=== PATIENT | male | born 1965 | race Caucasian/White ===

== ENCOUNTER 2018-07-18 12:17 | Inpatient (IN) | payer OTHER ==
[~2018-07-18] VITALS: Ht 190.5 cm; Wt 117.5 kg
[~2018-07-18 12:17] MED LIST: ACET-1600 PO; AMLO-150 PO; CEPH-376 PO
--- NOTE | 2018-07-18 12:56 | NUR ---
PT. IS A & O X 4 WITH C/O BLOODY STOOL IN HIS COLOSTOMY WELL BLOODY EMESIS YESTERDAY. PT. IS PINK, WARM AND DRY. LUNGS ARE CTA. PT. HAS A HERNIA PRESENT AT HIS LLQ. PT.'S BS ARE HYPOACTIVE. PT.'S PULSES ARE +2 THROUGHOUT. PT. IS RESTING WITH THE HOB ELEVATED GREATER THAN 30 DEGREES. PT. HAS THE CALL LIGHT IN PLACE AND THE SIDERAILS ARE UP X 2.
[2018-07-18 13:10] LABS: ALANINE AMINOTRANSFERASE 42 U/L (12-78); ALBUMIN 3.7 g/dL (3.4-5.0); ANION GAP 7 mmol/L (5-15); CALCIUM 8.4 mg/dL (8.5-10.1); CHLORIDE 110 mmol/L (98-107); CREATININE 0.79 mg/dL (0.7-1.3); INTERNATIONAL NORMALIZED RATIO 1.04 (0.93-1.1); PROTHROMBIN TIME 10.9 Seconds (9.6-11.5)
[2018-07-18 13:13] LABS: ALKALINE PHOSPHATASE 73 U/L (45-117); TOTAL PROTEIN 7.3 g/dL (6.4-8.2)
[2018-07-18] MEDS ORDERED: ONDANSETRON 2MG/ML, 2ML IVPush ONE (13:30)
[2018-07-18] MEDS ORDERED: SODIUM CHLORIDE FLUSH 10ML SYR IVF ONE (13:30)
[2018-07-18] MEDS ORDERED: OCTREOTIDE 100MCG/ML, 1ML (0.1MG/ML) IV ONE (13:30)
--- NOTE | 2018-07-18 13:42 | NUR ---
IV ACCESS ESTABLISHED PT. WAS PLACED ON THE CP MONITOR. PT. IS RESTING AT THIS TIME. NO CONCERNS.
[2018-07-18 14:06] LABS: MEAN CORPUSCULAR HEMOGLOBIN 33.4 pg (27.5-34.5); MEAN CORPUSCULAR HGB CONC 33.9 g/dL (33.2-36.2); MEAN CORPUSCULAR VOLUME 98.5 fL (81-97); RED BLOOD COUNT 4.43 x10^6/uL (4.38-5.82)
[2018-07-18 14:09] LABS: MEAN PLATELET VOLUME 10.3 fL (7.4-10.4); PLATELET COUNT 65 x10^3/uL (130-400)
[2018-07-18 14:13] LABS: MD SCAN
[2018-07-18 14:14] LABS: BASOPHILS # (AUTO) 0.01 x10^3/uL (0-0.1); BASOPHILS % (AUTO) 1 % (0-1); EOSINOPHILS # (AUTO) 0.07 x10^3/uL (0-0.4); EOSINOPHILS % (AUTO) 3 % (1-7); LYMPHOCYTES # (AUTO) 0.37 x10^3/uL (1-3.4); LYMPHOCYTES % (AUTO) 18 % (22-44); MONOCYTES # (AUTO) 0.25 x10^3/uL (0.2-0.8); MONOCYTES % (AUTO) 12 % (2-9); NEUTROPHILS % (AUTO) 67 % (42-75)
[2018-07-18] MEDS ORDERED: OCTREOTIDE 500 MCG in SODIUM CHLORIDE 0.9% 249 ML IV PRN (14:42)
[2018-07-18] MEDS ORDERED: ONDANSETRON 2MG/ML, 2ML ONE (14:44)
[2018-07-18] MEDS ORDERED: OCTREOTIDE 100MCG/ML, 1ML (0.1MG/ML) ONE (14:44)
[2018-07-18] MEDS ORDERED: SODIUM CHLORIDE 0.9% 1,000 ML IV ONE (14:49)
--- NOTE | 2018-07-18 14:55 | NUR ---
PT LYING SUPINE ON GURNEY WITH SIDERAILS UP X 2. PT MEDICATED WITH OCTREOTIDE AND ZOFRAN, DOCUMENTED IN EMR. PT HAS NO COMPLAINTS AT THIS TIME.
[2018-07-18] MEDS ORDERED: SODIUM CHLORIDE FLUSH 10ML SYR IVF PRN (15:00)
--- NOTE | 2018-07-18 15:13 | NUR ---
PT. REPORT WAS GIVEN TO FERNANDA HILL. PT. IS RESTING WITHOUT CONCERNS.
[2018-07-18] MEDS ORDERED: DOCUSATE 100 MG CAPSULE PO PRN (15:30)
[2018-07-18] MEDS ORDERED: POLYETHYLENE GLYCOL 17 GM PACKET PO PRN (15:30)
[2018-07-18 15:41] VITALS: BP 163/80
[2018-07-18] MEDS: LACTATED RINGERS 1,000 ML IV SCH (17:28)
[2018-07-18 17:41] VITALS: BP 160/98
[2018-07-18 18:55] VITALS: BP 144/86
[2018-07-18] MEDS ORDERED: ONDANSETRON 2MG/ML, 2ML IVPush PRN (19:00)
[2018-07-18] MEDS: OCTREOTIDE 500 MCG in SODIUM CHLORIDE 0.9% 249 ML IV SCH (20:45)
[2018-07-18] MEDS: PANTOPRAZOLE 40 MG IV IVPush SCH (20:45)
[2018-07-19 01:46] VITALS: BP 138/81
[2018-07-19 05:14] LABS: INTERNATIONAL NORMALIZED RATIO 1.12 (0.93-1.1); PROTHROMBIN TIME 11.7 Seconds (9.6-11.5)
[2018-07-19 05:19] LABS: MEAN CORPUSCULAR HEMOGLOBIN 33.2 pg (27.5-34.5); MEAN CORPUSCULAR HGB CONC 33.4 g/dL (33.2-36.2); MEAN CORPUSCULAR VOLUME 99.5 fL (81-97); MEAN PLATELET VOLUME 9.9 fL (7.4-10.4); RED BLOOD COUNT 4.09 x10^6/uL (4.38-5.82); RED CELL DISTRIBUTION WIDTH 12.4 % (9.4-14.8)
[2018-07-19 05:24] LABS: PLATELET COUNT 41 x10^3/uL (130-400)
[2018-07-19 05:27] LABS: CALCIUM 7.7 mg/dL (8.5-10.1); CHLORIDE 107 mmol/L (98-107)
[2018-07-19 05:32] LABS: ALANINE AMINOTRANSFERASE 41 U/L (12-78); ALBUMIN 3.2 g/dL (3.4-5.0); ALKALINE PHOSPHATASE 61 U/L (45-117); ANION GAP 9 mmol/L (5-15); BILIRUBIN,TOTAL 1.5 mg/dL (0.2-1.0); CREATININE 0.77 mg/dL (0.7-1.3); TOTAL PROTEIN 6.5 g/dL (6.4-8.2)
[2018-07-19 05:51] LABS: BASOPHILS # (AUTO) 0.01 x10^3/uL (0-0.1); BASOPHILS % (AUTO) 1 % (0-1); EOSINOPHILS # (AUTO) 0.06 x10^3/uL (0-0.4); EOSINOPHILS % (AUTO) 4 % (1-7); LYMPHOCYTES # (AUTO) 0.37 x10^3/uL (1-3.4); LYMPHOCYTES % (AUTO) 23 % (22-44); MD SCAN; MONOCYTES # (AUTO) 0.23 x10^3/uL (0.2-0.8); MONOCYTES % (AUTO) 14 % (2-9); NEUTROPHILS # (AUTO) 0.95 x10^3/uL (1.8-6.8); NEUTROPHILS % (AUTO) 59 % (42-75)
[2018-07-19] MEDS: OCTREOTIDE 500 MCG in SODIUM CHLORIDE 0.9% 249 ML IV SCH ×3 (06:23→21:28)
[2018-07-19] MEDS: LACTATED RINGERS 1,000 ML IV SCH ×2 (06:25→15:57)
[2018-07-19 08:00] VITALS: BP 140/89
[2018-07-19] MEDS: PANTOPRAZOLE 40 MG IV IVPush SCH ×2 (09:09→21:27)
[2018-07-19] MEDS ORDERED: PROPOFOL 10 MG/ML, 50ML ONE (10:05)
[2018-07-19] MEDS ORDERED: PROPOFOL 10 MG/ML, 20ML ONE (10:05)
[2018-07-19] MEDS ORDERED: ONDANSETRON 2MG/ML, 2ML ONE ×2 (10:05→10:57)
[2018-07-19] MEDS ORDERED: FENTANYL PF 100 MCG/2ML ONE (10:43)
[2018-07-19] MEDS: FENTANYL PF 100 MCG/2ML IV PRN ×3 (10:46→11:11)
[2018-07-19] MEDS ORDERED: hydrALAzine 20 MG/ML, 1ML ONE (10:57)
[2018-07-19] MEDS ORDERED: PROMETHAZINE 25 MG/ML, 1ML IV PRN (11:00)
[2018-07-19] MEDS ORDERED: ONDANSETRON 2MG/ML, 2ML IV PRN (11:00)
[2018-07-19] MEDS ORDERED: OCTREOTIDE 500 MCG in SODIUM CHLORIDE 0.9% 249 ML IV SCH (11:00)
[2018-07-19] MEDS ORDERED: OXYcodone 5 MG/5 ML ORAL.SOL UDC PO PRN (11:00)
[2018-07-19] MEDS ORDERED: hydrALAzine 20 MG/ML, 1ML IV PRN (11:00)
[2018-07-19] MEDS ORDERED: MORPHINE SULFATE 4 MG/ML, 1ML IVPush ONE (12:30)
[2018-07-19 12:39] LABS: MEAN CORPUSCULAR HEMOGLOBIN 33.4 pg (27.5-34.5); MEAN CORPUSCULAR HGB CONC 33.9 g/dL (33.2-36.2); MEAN CORPUSCULAR VOLUME 98.6 fL (81-97); RED BLOOD COUNT 4.33 x10^6/uL (4.38-5.82); RED CELL DISTRIBUTION WIDTH 12.5 % (9.4-14.8)
[2018-07-19 13:14] LABS: BASOPHILS # (AUTO) 0.01 x10^3/uL (0-0.1); BASOPHILS % (AUTO) 1 % (0-1); EOSINOPHILS # (AUTO) 0.05 x10^3/uL (0-0.4); EOSINOPHILS % (AUTO) 3 % (1-7); LYMPHOCYTES # (AUTO) 0.29 x10^3/uL (1-3.4); LYMPHOCYTES % (AUTO) 20 % (22-44); MD SCAN; MEAN PLATELET VOLUME 9.3 fL (7.4-10.4); MONOCYTES # (AUTO) 0.19 x10^3/uL (0.2-0.8); MONOCYTES % (AUTO) 13 % (2-9); NEUTROPHILS # (AUTO) 0.94 x10^3/uL (1.8-6.8); NEUTROPHILS % (AUTO) 63 % (42-75); PLATELET COUNT 52 x10^3/uL (130-400)
[2018-07-19] MEDS: ACETAMINOPHEN 325 MG TABLET PO PRN ×2 (13:58→21:25)
[2018-07-19 14:45] VITALS: BP 163/97
[2018-07-19] MEDS: MORPHINE SULFATE 4 MG/ML, 1ML IVPush PRN (15:56)
[2018-07-19 17:04] LABS: MEAN CORPUSCULAR HEMOGLOBIN 33.6 pg (27.5-34.5); MEAN CORPUSCULAR HGB CONC 33.9 g/dL (33.2-36.2); MEAN CORPUSCULAR VOLUME 99.1 fL (81-97); MEAN PLATELET VOLUME 9.7 fL (7.4-10.4); PLATELET COUNT 50 x10^3/uL (130-400); RED BLOOD COUNT 4.09 x10^6/uL (4.38-5.82); RED CELL DISTRIBUTION WIDTH 12.5 % (9.4-14.8)
[2018-07-19 17:06] LABS: MD YES
[2018-07-19 18:29] LABS: BAND#(MANUAL) 0.04 x10^3/uL; BANDS%(MANUAL) 2 % (0-7); LYMPH#(MANUAL) 0.38 x10^3/uL (1-3.4); LYMPHS% (MANUAL) 21 % (22-44); MONOS#(MANUAL) 0.14 x10^3/uL (0.3-2.7); MONOS% (MANUAL) 8 % (2-9)
[2018-07-19 18:30] LABS: <PLATELET ESTIMATE> DECREASED; <PLT MORPHOLOGY> NORMAL PLT MORPH; <RBC MORPHOLOGY> NORMAL; BASOS#(MANUAL) 0.02 x10^3/uL (0-0.1); BASOS% (MANUAL) 1 % (0-1); EOS#(MANUAL) 0.09 x10^3/uL (0.0-0.4); EOS% (MANUAL) 5 % (1-7); SEG#(MANUAL) 1.13 x10^3/uL (1.8-6.8); SEGS% (MANUAL) 63 % (42-75)
[2018-07-19 18:38] VITALS: BP 172/92
[2018-07-19 23:41] LABS: MEAN CORPUSCULAR HEMOGLOBIN 32.9 pg (27.5-34.5); MEAN CORPUSCULAR HGB CONC 33.3 g/dL (33.2-36.2); MEAN PLATELET VOLUME 8.8 fL (7.4-10.4); PLATELET COUNT 56 x10^3/uL (130-400); RED BLOOD COUNT 4.09 x10^6/uL (4.38-5.82); RED CELL DISTRIBUTION WIDTH 12.6 % (9.4-14.8)
[2018-07-19 23:51] LABS: MD YES
[2018-07-19 23:57] LABS: <PLATELET ESTIMATE> DECREASED; <PLT MORPHOLOGY> NORMAL PLT MORPH; <RBC MORPHOLOGY> NORMAL; BASOS#(MANUAL) 0.02 x10^3/uL (0-0.1); BASOS% (MANUAL) 1 % (0-1); EOS#(MANUAL) 0.14 x10^3/uL (0.0-0.4); EOS% (MANUAL) 8 % (1-7); LYMPH#(MANUAL) 0.25 x10^3/uL (1-3.4); LYMPHS% (MANUAL) 14 % (22-44); MONOS#(MANUAL) 0.16 x10^3/uL (0.3-2.7); MONOS% (MANUAL) 9 % (2-9); SEG#(MANUAL) 1.22 x10^3/uL (1.8-6.8); SEGS% (MANUAL) 68 % (42-75)
[2018-07-20 00:24] VITALS: BP 134/81
[2018-07-20] MEDS: LACTATED RINGERS 1,000 ML IV SCH ×3 (01:23→16:41)
[2018-07-20] MEDS: ACETAMINOPHEN 325 MG TABLET PO PRN (05:53)
[2018-07-20 08:30] VITALS: BP 148/88
[2018-07-20] MEDS: PANTOPRAZOLE 40 MG IV IVPush SCH (08:59)
[2018-07-20] MEDS: OCTREOTIDE 500 MCG in SODIUM CHLORIDE 0.9% 249 ML IV SCH (08:59)
[2018-07-20 13:30] VITALS: BP 158/91
[2018-07-20] MEDS: MORPHINE SULFATE 4 MG/ML, 1ML IVPush PRN (13:47)
[2018-07-20] MEDS ORDERED: OMEPRAZOLE 20 MG CAPSULE.DR PO SCH (14:00)
[2018-07-20] MEDS ORDERED: SUCRALFATE 1 GM/10 ML UDC PO SCH (16:00)
[2018-07-20] MEDS ORDERED: SUCR1ORA5 PO (17:05)
[2018-07-20] MEDS ORDERED: PANT40TA3 PO (17:05)
[2018-07-20] MEDS ORDERED: CARVEDILOL 6.25 MG TABLET PO SCH (21:00)
== END 2018-07-20 18:30 | disposition home or self-care (01) | DRG 432 ==
LOC: ED 13:24 → 4NOR 14:49 → ED 14:49 → 4NOR 15:12 → 4WST 17:02
PROVIDERS: ADMIT Internal Medicine; ATTEND Internal Medicine
PROC: 30233R1 Transfusion of Nonautologous Platelets into Peripheral Vein, Percutaneous Approach (ICD-10-PCS; 2018-07-19)
PROC: 06L38CZ Occlusion of Esophageal Vein with Extraluminal Device, Via Natural or Artificial Opening Endoscopic (ICD-10-PCS; principal; 2018-07-19 10:00)
DX: K70.30 Alcoholic cirrhosis of liver without ascites (principal); I85.11 Secondary esophageal varices with bleeding; K76.6 Portal hypertension; D62 Acute posthemorrhagic anemia; Z93.3 Colostomy status; D69.59 Other secondary thrombocytopenia; K25.9 Gastric ulcer, unspecified as acute or chronic, without hemorrhage or perforation; B18.2 Chronic viral hepatitis C; D72.819 Decreased white blood cell count, unspecified; I10 Essential (primary) hypertension; K29.60 Other gastritis without bleeding; K31.89 Other diseases of stomach and duodenum; K43.5 Parastomal hernia without obstruction or gangrene; Z79.899 Other long term (current) drug therapy; Z87.891 Personal history of nicotine dependence; Z90.49 Acquired absence of other specified parts of digestive tract; Z91.19 Patient's noncompliance with other medical treatment and regimen
CPT/HCPCS: 36415; 80053; 85025; 85610; 85730; 86850; 86900; 96374; 96375; G0378; J2354; J2405; J2704; J3010; C9113; J0360; J2270; J7050; J7120; P9035

== ENCOUNTER → 2019-03-21 | Outpatient (CLI) | payer OTHER ==
[~2019-03-21] MED LIST changes: +ACET325C6 PEG; +ACID1TAB7 PO; +AMPI3VIA IV; +DIPH25CA61 PO; +ENOX40SY4 SQ; +HYDR-3342 PO; +LINE600T15 PO; +OMNIPAQUE 350 MG/ML, 100ML BOTTLE ONE; +OXYC5TAB3 PO; +PANT40TA3 PO; +PANT40TA5 PO; +SUCR1ORA5 PO
== END | disposition home or self-care (01) ==
LOC: CFH 13:38
PROVIDERS: ATTEND Physician Assistant
DX: K44.9 Diaphragmatic hernia without obstruction or gangrene (principal); K43.5 Parastomal hernia without obstruction or gangrene; R16.1 Splenomegaly, not elsewhere classified; C22.0 Liver cell carcinoma; N20.0 Calculus of kidney; R18.8 Other ascites
CPT/HCPCS: 71260; 74177; Q9967

== ENCOUNTER → 2019-10-17 | Outpatient (CLI) | payer OTHER ==
[~2019-10-17] MED LIST changes: +ACET325C6 PO; +ERGO500017 PO; +FERR325T5 PO; +MULT-449 PO; +NADO20TA12 PO; +OMEP20CA20 PO; -OMNIPAQUE 350 MG/ML, 100ML BOTTLE ONE; +OMNIPAQUE 350 MG/ML, 75ML BOTTLE ONE; +ONDA4TAB7 PO; +TRAZ50TA66 PO
== END | disposition home or self-care (01) ==
LOC: CFH 11:46
PROVIDERS: ATTEND Hospitalist
DX: Z01.818 Encounter for other preprocedural examination (principal); Z12.9 Encounter for screening for malignant neoplasm, site unspecified; C22.0 Liver cell carcinoma; K70.31 Alcoholic cirrhosis of liver with ascites; B19.20 Unspecified viral hepatitis C without hepatic coma; I82.890 Acute embolism and thrombosis of other specified veins; Z86.010 Personal history of colon polyps
CPT/HCPCS: 71260; Q9967

== ENCOUNTER 2020-07-26 19:18 | Inpatient (IN) | payer OTHER ==
[~2020-07-26] VITALS: Ht 190.5 cm; Wt 120.3 kg
[~2020-07-26 19:18] MED LIST changes: -OMNIPAQUE 350 MG/ML, 75ML BOTTLE ONE; -OXYC5TAB3 PO; +OXYC5TAB98 PO; -PANT40TA5 PO; +PANT40TA6 PO
--- NOTE | 2020-07-26 20:42 | NUR ---
THIS IS A 55M THAT COMES IN FOR AC BLOOD IN COLOSTOMY X1HR. PT DENIES ANY TRAUMA/ ABNORMAL PAIN. PT STS WENT TO EMPTY COLOSTOMY PRIOR TO GOING TO BED FOR THE NIGHT AND IT WAS ALL BLOOD. NADN, PT AMBULATORY AT THIS TIME TO RESTROOM.
[2020-07-26] MEDS ORDERED: OMNIPAQUE 350 MG/ML, 100ML BOTTLE ONE (21:00)
[2020-07-26] MEDS ORDERED: ONDANSETRON 2MG/ML, 2ML IVPush ONE (21:00)
[2020-07-26] MEDS ORDERED: MORPHINE SULFATE 4 MG/ML, 1ML IVPush ONE (21:00)
[2020-07-26] MEDS ORDERED: ONDANSETRON 2MG/ML, 2ML ONE (21:08)
[2020-07-26] MEDS ORDERED: MORPHINE SULFATE 4 MG/ML, 1ML ONE (21:08)
--- NOTE | 2020-07-26 21:18 | NUR ---
PT MEDICATED PER APR 24 RIGHTS VERIFIED, PIV STARTED, LABS DRAWN, PT STS MORE COMFORTABLE AT THIS TIME
[2020-07-26 21:22] LABS: BASOPHILS % (AUTO) 1 % (0-1); EOSINOPHILS % (AUTO) 4 % (1-7); LYMPHOCYTES % (AUTO) 19 % (22-44); MEAN CORPUSCULAR HEMOGLOBIN 33.2 pg (27.5-34.5); MEAN CORPUSCULAR HGB CONC 33.8 g/dL (33.2-36.2); MEAN PLATELET VOLUME 9.9 fL (7.4-10.4); MONOCYTES % (AUTO) 14 % (2-9); NEUTROPHILS % (AUTO) 62 % (42-75); PLATELET COUNT 52 x10^3/uL (130-400); RED BLOOD COUNT 3.83 x10^6/uL (4.38-5.82); RED CELL DISTRIBUTION WIDTH 13.4 % (9.4-14.8)
[2020-07-26 21:33] LABS: ALANINE AMINOTRANSFERASE 43 U/L (12-78); ALBUMIN 3.4 g/dL (3.4-5.0); ANION GAP 5 mmol/L (5-15); CALCIUM 8.2 mg/dL (8.5-10.1); CHLORIDE 112 mmol/L (98-107); CREATININE 0.67 mg/dL (0.7-1.3)
[2020-07-26 21:36] LABS: ALKALINE PHOSPHATASE 126 U/L (45-117); BILIRUBIN,TOTAL 0.4 mg/dL (0.2-1.0)
[2020-07-26 21:49] LABS: INTERNATIONAL NORMALIZED RATIO 1.16 (0.93-1.1); PROTHROMBIN TIME 12.4 Seconds (9.6-11.5)
--- NOTE | 2020-07-26 22:12 | NUR ---
PT IN IMAGING
--- NOTE | 2020-07-27 00:28 | NUR ---
PT EMPTIED COLOSTOMY BAG, CONTINUES TO HAVE AC BLOOD, DENIES NEW OR WORSENING PAIN, PT STILL AMBULATORY
[2020-07-27] MEDS ORDERED: MELA10TA PO (00:46)
[2020-07-27] MEDS ORDERED: TRAZ150T62 PO (00:46)
[2020-07-27] MEDS ORDERED: DOCU100C33 PO (00:46)
[2020-07-27] MEDS ORDERED: ACET650S21 PO (00:46)
[2020-07-27] MEDS ORDERED: ONDA4TAB13 SL (00:46)
[2020-07-27] MEDS ORDERED: OMEP-110 PO (00:46)
--- NOTE | 2020-07-27 00:47 | NUR ---
TASK RN: MED REC DONE
--- NOTE | 2020-07-27 01:22 | NUR ---
PT UP TO RESTROOM STEADY GAIT AT THIS TIME
[2020-07-27] MEDS ORDERED: ONDANSETRON 2MG/ML, 2ML IVPush PRN (01:30)
--- NOTE | 2020-07-27 01:31 | NUR ---
Patient is resting comfortably in bed. Bed in lowest, rails engaged, call light on lap. Vital Signs within normal limits. WCTM.
--- NOTE | 2020-07-27 01:49 | NUR ---
REPORT TO PADMINI BEATTY READY FOR TRANSFER TO [facility] AT THIS TIME. ALL QUESTIONS ADDRESSED
--- NOTE | 2020-07-27 02:06 | NUR ---
WILMER AT BEDSIDE
[2020-07-27 02:30] VITALS: BP 152/91
[2020-07-27] MEDS ORDERED: OCTREOTIDE 500 MCG in SODIUM CHLORIDE 0.9% 99 ML IV SCH (02:30)
[2020-07-27] MEDS ORDERED: ACETAMINOPHEN 325 MG TABLET PO PRN (02:30)
[2020-07-27] MEDS ORDERED: OCTREOTIDE 50 MCG/ML, 1ML (0.05MG/ML) IV ONE (02:30)
[2020-07-27] MEDS ORDERED: PANTOPRAZOLE 80 MG in SODIUM CHLORIDE 0.9% 50 ML IVPB ONE (02:30)
[2020-07-27] MEDS ORDERED: morphine SULFATE 10 MG/ML, 1ML IV PRN (02:30)
[2020-07-27] MEDS ORDERED: ONDANSETRON 2MG/ML, 2ML IV PRN (02:30)
[2020-07-27] MEDS: CEFTRIAXONE 1,000 MG in DEXTROSE 5% 50 ML IVPB SCH (04:21)
[2020-07-27] MEDS: PANTOPRAZOLE 80 MG in SODIUM CHLORIDE 0.9% 100 ML IV SCH ×3 (04:44→23:09)
[2020-07-27 07:31] VITALS: BP 122/78
[2020-07-27 12:26] VITALS: BP 147/93
[2020-07-27 20:05] VITALS: BP 159/94
[2020-07-28 01:48] VITALS: BP 128/79
[2020-07-28] MEDS: CEFTRIAXONE 1,000 MG in DEXTROSE 5% 50 ML IVPB SCH (02:09)
[2020-07-28 07:30] VITALS: BP 149/92
[2020-07-28] MEDS ORDERED: PANT40TA3 PO (09:26)
== END 2020-07-28 11:26 | disposition home or self-care (01) | DRG 378 ==
LOC: ED 23:40 → EDIP 07-27 01:50 → 4EST 07-27 02:27 → DCLOUNGE 07-28 11:13
PROVIDERS: ADMIT Family Medicine; ATTEND Family Medicine
DX: K92.1 Melena (principal); C22.0 Liver cell carcinoma; B19.20 Unspecified viral hepatitis C without hepatic coma; D53.9 Nutritional anemia, unspecified; K70.31 Alcoholic cirrhosis of liver with ascites; D69.6 Thrombocytopenia, unspecified; K72.90 Hepatic failure, unspecified without coma; Z76.82 Awaiting organ transplant status; Z85.05 Personal history of malignant neoplasm of liver; Z87.19 Personal history of other diseases of the digestive system; Z79.899 Other long term (current) drug therapy; Z93.3 Colostomy status
CPT/HCPCS: 36415; 74177; 80053; 85014; 85018; 85025; 85610; 86850; 86900; 96374; 96375; G0378; J0696; J2354; J2405; Q9967; C9113; J2270